=== PATIENT | female | born 1955 | race Caucasian/White ===

== ENCOUNTER → 2017-03-07 | Outpatient (REF) ==
--- NOTE | 2017-03-07 16:17 | REP ---
Right ankle series: Four views. History: Degenerative disease. No comparison study. Findings: The patient is status post screw plate fixation of the distal fibula. Ankle mortise is intact. 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 I cannot exclude a small anterior loose body. There is talar sclerosis and spurring as well. Midfoot osteoarthritis is seen. There is Achilles and plantar calcaneal spurring. Signed by Azam Glasgow MD 03/07/2017 05:10 P
--- NOTE | 2017-03-07 16:20 | REP ---
Cervical spine series: Three views. History: Degenerative disc disease. Comparison: No comparison views. Findings: The patient is status post ventral discectomy and fusion from C4 through C6. There is straightening. Degenerative disc disease is seen at C3-4 and osteophytes from C3-4 are seen extending over the proximal edge of the ventral fusion plate. There is discogenic spurring at C2-3 as well as at C6-7. There is a mild dextroconvex curvature on the AP view. Open-mouth odontoid view is unremarkable. Impression: Status post ventral discectomy and fusion C4-C6. Degenerative disc disease at C3-4, C6-7 and to some degree C2-3. Signed by Azam Glasgow MD 03/07/2017 05:11 P
== END ==
LOC: M SMT 13:52
PROVIDERS: ATTEND Internal Medicine
DX: Z02.9 Encounter for administrative examinations, unspecified (principal)